=== PATIENT | female | born 1960 | race Caucasian/White ===

== ENCOUNTER 2019-05-10 20:25 | Emergency (ER) | payer OTHER, SELFPAY ==
--- NOTE | 2019-05-10 20:30 | ED.HA ---
HPI - Headache General Chief Complaint: Headache Stated Complaint: Headache Time Seen by Provider: 05/10/19 20:26 Source: patient Mode of arrival: EMS Limitations: no limitations History of Present Illness HPI Narrative: Patient is a 58-year-old female who arrived by EMS for evaluation of which was in the so he described as abdominal pain and chest pain. Patient states that she was at work at the local [employer] when she started to have some epigastric pain and nausea. States that she became lightheaded. The epigastric pain did get worse with palpation. She also is complaining of a headache that she has had for the past couple days. States she has had epigastric pain in the past and was told that it was reflux disease. She does occasionally take medications for this. Denies any fevers. No interventions prior to arrival. Related Data Allergies Allergy/AdvReac Type Severity Reaction Status Date / Time No Known Drug Allergies Allergy Verified 05/10/19 20:32 Review of Systems Constitutional Constitutional: Denies fever(s) and Reports headache(s) Eyes Eyes: Denies change in vision ENT Ears, Nose, Mouth, and Throat: Denies ear discharge, Reports headache(s), Reports disequilibrium, Denies tinnitus and Denies sore throat Cardiovascular Cardiovascular: Denies chest pain and Denies palpitations Respiratory Respiratory: Denies cough Gastrointestinal Gastrointestinal: Reports abdominal pain, Denies change in stool character, Reports nausea and Denies vomiting Genitourinary Genitourinary: Denies dysuria Musculoskeletal Musculoskeletal: Denies myalgias and Denies arthralgias Integumentary/Breasts Skin/Breast: Denies lesions and Denies rash Neurologic Neurologic: Denies behavioral changes, Reports headache(s) and Reports disequilibrium Psychiatric Psychiatric: Denies behavioral changes Endocrine Endocrine: Denies palpitations Hematologic/Lymphatic Hematologic/Lymphatic: Denies easy bleeding and Denies easy bruising Allergic/Immunologic Allergic/Immunologic: Denies urticaria Patient History Medical History Gastroesophageal reflux disease (Acute) Surgical History History of cholecystectomy (Acute) Social History Smoking Status: Current every day smoker Exam Initial Vital Signs Initial Vital Signs: Vital Signs Temperature 98.2 F 05/10/19 20:32 Pulse Rate 71 05/10/19 20:32 Respiratory Rate 13 05/10/19 20:32 Blood Pressure 156/76 H 05/10/19 20:32 Pulse Oximetry 96 05/10/19 20:32 Const General: cooperative and comfortable Orientation: alert, awake and oriented x3 HENMT Head: normal to inspection and normocephalic Ears: TM's normal bilaterally Eyes General: appearance normal, both eyes and all related structures Neck Other: Patient has a pinpoint tenderness to the right paraspinal reason along the occipital portion of the scalp. Chest Chest: No crepitus Resp Effort & Inspection: normal respiratory effort Auscultation: clear to auscultation bilaterally Cardio Rate: regular rate Rhythm: regular rhythm GI Inspection: non-distended Palpation: soft, No firm and tender (Epigastric region) Back/Spine/Pelvis Back: No CVA tenderness Skin Lesions: no lesions Rashes: no rashes Neuro General: alert, awake and oriented x3 Cranial Nerves: CN's II-XI intact bilaterally Cognition: normal cognition Speech: speech normal Motor: muscle tone normal throughout Extrem General: normal to inspection and capillary refill normal Psych Appearance: grossly normal and well kempt Course Orders Ordered: ED Orders 05/10/19 20:29 EKG-12 Lead Stat 05/10/19 20:43 Complete Blood Count AUTO DIFF Stat Comprehensive Metabolic Panel Stat Lipase Stat Discontinued Medications Sodium Chloride (Normal Saline 0.9%) 1,000 mls @ 1,000 mls/hr IV BOLUS ONE Stop: 05/10/19 21:28 Last Infusion: 05/10/19 21:53 Dose: 0 mls/hr Documented by: Admin: 05/10/19 20:48 Dose: 1,000 mls/hr Documented by: THA Ondansetron HCl (Zofran) 4 mg IV NOW ONE Stop: 05/10/19 20:30 Last Admin: 05/10/19 20:48 Dose: 4 mg Documented by: THA Pantoprazole Sodium (Protonix) 40 mg IV NOW ONE Stop: 05/10/19 20:43 Last Admin: 05/10/19 20:50 Dose: 40 mg Documented by: THA Vital Signs Vital signs: Vital Signs - 8 hr 05/10/19 20:32 05/10/19 21:50 Temperature 98.2 F Pulse Rate 71 65 Respiratory Rate 13 14 Blood Pressure 156/76 H 148/98 H Pulse Oximetry 96 98 MDM - Headache Medical Records Attestation: I reviewed the patient's medical records. Lab Data Attestation: I reviewed the patient's lab results. Result diagrams: 05/10/19 20:43 05/10/19 20:43 Labs: Lab Results 05/10/19 05/10/19 Range/Units 20:43 20:43 WBC 9.0 (4.5-11.0) X10^3/uL RBC 4.76 (4.0-5.2) X10^6/uL Hgb 14.9 (12.0-16.0) g/dL Hct 43.9 (36-46) % MCV 92.1 (80-100) fL MCH 31.2 (26-34) PG MCHC 33.9 (30-36) % RDW 14.5 (11.6-14.8) % Plt Count 182 (150-400) X10^3/uL Neut % (Auto) 49.0 L (50-75) % Lymph % (Auto) 37.9 (25-40) % [place] % (Auto) 9.6 (3-14) % Eos % (Auto) 2.3 (2-4) % Baso % (Auto) 1.2 (0-2) % Neut # (Auto) 4400 (3473-8957) /uL Lymph # (Auto) 3400 (6374-0034) /uL [place] # (Auto) 900 (0-900) /uL Eos # (Auto) 200 (0-450) /uL Baso # (Auto) 100 (0-100) /uL Sodium 139 (137-145) mmol/L Potassium 4.3 (3.4-5.1) mmol/L Chloride 107 (98-107) mmol/L Carbon Dioxide 25 (22-32) mmol/L BUN 21 H (7-17) mg/dL Creatinine 0.60 (0.52-1.04) mg/dL Estimated GFR > 60.0 (>60) mL/min BUN/Creatinine Ratio 35.0 H (6-22) Glucose 106 (80-110) mg/dL Calcium 9.6 (8.4-10.2) mg/dL Total Bilirubin 0.5 (0.2-1.3) mg/dL AST 29 (14-36) IU/L ALT 32 (<35) IU/L Alkaline Phosphatase 88 (38-126) U/L Total Protein 7.4 (6.3-8.2) g/dL Albumin 4.5 (3.5-5.0) g/dL Globulin 2.9 (1.7-4.1) g/dL Albumin/Globulin Ratio 1.6 (1.0-2.8) Lipase 67 (23-300) U/L ECG Data Attestation: I personally reviewed and interpreted this ECG as follows: Prior ECG tracings: not available for review Interpretation: Sinus rhythm Ventricular rate is 71 Normal axis Normal QRS Normal QTC No ST T wave changes MDM Narrative Medical decision making narrative: Patient is nontoxic appearing. Chest x-ray is unremarkable, did report some improvement after the Protonix here in the emergency department. Low suspicion for ACS. Low suspicion for CVA. I did offer a trigger-point injections that she seemed to have pinpoint tenderness of the right occipital region of her scalp which was the source of her headache. The patient declined this. EKG is unremarkable. Labs unremarkable. I do suspect that her abdominal pain is reflux disease. No signs of pancreatitis. Will hold on radiologic studies for now. Patient was given return precautions and follow-up instructions. She expressed understanding and agreement with plan. Discharge Plan Departure Patient Disposition: Home Clinical Impression: Nausea Headache Qualifiers: Headache type: tension-type Headache chronicity pattern: unspecified pattern Intractability: not intractable Qualified Code(s): G44.209 - Tension-type headache, unspecified, not intractable Abdominal pain Qualifiers: Abdominal location: epigastric Qualified Code(s): R10.13 - Epigastric pain Discharge Date/Time: 05/10/19 21:50 Instructions: DI for Headache, DI for Epigastric Pain Activity Restrictions/Additional Instructions: Continue all your medications as directed. Contact your primary provider for follow-up. Return to the emergency department for any new or worsening symptoms
[2019-05-10 20:32] VITALS: BP 156/76; PULSE 71; RESP 13; TEMP 36.8; O2SAT 96; BMI 25.8
[2019-05-10] MEDS: ONDANSETRON 4 MG/2 ML INJ IV (20:48)
[2019-05-10] MEDS: SODIUM CHLORIDE 0.9% 1,000 ML 1000 ML IV (20:48)
[2019-05-10 20:49] LABS: Add Manual Diff / Slide Review NO; Basophils Absolute Auto 100 /uL (0-100); Basophils Percent Auto 1.2 % (0-2); Eosinophils Absolute Auto 200 /uL (0-450); Eosinophils Percent Auto 2.3 % (2-4); Hematocrit 43.9 % (36-46); Hemoglobin 14.9 g/dL (12.0-16.0); Lymphocytes Absolute Auto 3400 /uL (1100-4500); Lymphocytes Percent Auto 37.9 % (25-40); Mean Corpuscular HGB Conc 33.9 % (30-36); Mean Corpuscular Hemoglobin 31.2 PG (26-34); Mean Corpuscular Volume 92.1 fL (80-100); Monocytes Absolute Auto 900 /uL (0-900); Monocytes Percent Auto 9.6 % (3-14); Neutrophils Absolute Auto 4400 /uL (1500-7000); Platelet Count 182 X10^3/uL (150-400); Red Blood Cell Count 4.76 X10^6/uL (4.0-5.2); Red Cell Distribution Width 14.5 % (11.6-14.8)
[2019-05-10] MEDS: PANTOPRAZOLE 40 MG VIAL IV (20:50)
[2019-05-10 21:03] LABS: Alanine Aminotransferase 32 IU/L (<35); Albumin 4.5 g/dL (3.5-5.0); Albumin Globulin Ratio 1.6 (1.0-2.8); Alkaline Phosphatase 88 U/L (38-126); Aspartate Aminotransferase 29 IU/L (14-36); Bilirubin Total 0.5 mg/dL (0.2-1.3); Blood Urea Nitrogen 21 mg/dL (7-17); Calcium 9.6 mg/dL (8.4-10.2); Carbon Dioxide 25 mmol/L (22-32); Chloride 107 mmol/L (98-107); Estimated Glomerular Filt Rate > 60.0 mL/min (>60); Globulin 2.9 g/dL (1.7-4.1); Glucose 106 mg/dL (80-110); HEMOLYSIS < 15 (0-50); Lipase 67 U/L (23-300); Potassium 4.3 mmol/L (3.4-5.1); Sodium 139 mmol/L (137-145); Total Protein 7.4 g/dL (6.3-8.2)
[2019-05-10 21:50] VITALS: BP 148/98; PULSE 65; RESP 14; O2SAT 98
== END 2019-05-10 21:50 | disposition home or self-care (01) ==
PROVIDERS: Emergency Provider Emergency Medicine; Family Provider Family Medicine; PCP Family Medicine
DX: R11.0 Nausea (principal); G44.209 Tension-type headache, unspecified, not intractable; R10.13 Epigastric pain
CPT/HCPCS: 36415; 80053; 83690; 85025; 93005; 93010; 96374; 96375; 99283; 99284; C9113; J2405